=== PATIENT | female | born 1935 | race Two or more races ===

== ENCOUNTER 2017-05-22 15:10 | Outpatient (CLI) | payer OTHER ==
[~2017-05-22 15:10] MED LIST: CRESTOR5 MG PO; MAVIK4 MG PO; PAXIL20 MG PO; SYNTHROID50 MCG PO; VERAPAMIL ER180 MG PO
== END 2017-05-22 15:14 | disposition home or self-care (01) ==
LOC: SONOGRAMA 15:10
DX: M54.2 Cervicalgia (principal)

== ENCOUNTER 2020-11-23 17:57 | Emergency (ER) | payer OTHER ==
[~2020-11-23] VITALS: Ht 160 cm; Wt 49.9 kg
[2020-11-23] MEDS ORDERED: CLONAZEPAM0.5 MG PO (18:19)
[2020-11-23] MEDS ORDERED: NEURONTIN300 MG (18:19)
== END 2020-11-24 00:01 | disposition left against medical advice (07) ==
LOC: ER 17:57
DX: R00.2 Palpitations (principal); F41.8 Other specified anxiety disorders

== ENCOUNTER 2021-08-05 09:15 | Emergency (ER) | payer OTHER ==
[~2021-08-05] VITALS: Ht 154.9 cm; Wt 56.7 kg
[~2021-08-05 09:15] MED LIST changes: +CLONAZEPAM0.5 MG PO; +NEURONTIN300 MG
[2021-08-05] MEDS ORDERED: CINACALCET HCL30 MG PO (09:37)
[2021-08-05] MEDS ORDERED: LEVOTHYROXINE25 MC1 PO (09:37)
[2021-08-05] MEDS ORDERED: VITAMIN D325 MC2 PO (09:37)
[2021-08-05] MEDS ORDERED: CLONAZEPAM1 MG PO (09:38)
[2021-08-05] MEDS ORDERED: MIRTAZAPINE15 MG PO (09:38)
== END 2021-08-05 13:16 | disposition home or self-care (01) ==
LOC: ER 09:15
DX: R10.32 Left lower quadrant pain (principal); M77.9 Enthesopathy, unspecified; I10 Essential (primary) hypertension

== ENCOUNTER 2021-08-13 09:45 | Emergency (ER) | payer OTHER ==
[~2021-08-13] VITALS: Ht 154.9 cm; Wt 56.7 kg
[~2021-08-13 09:45] MED LIST changes: +CINACALCET HCL30 MG PO; +CLONAZEPAM1 MG PO; +LEVOTHYROXINE25 MC1 PO; +MIRTAZAPINE15 MG PO; +VITAMIN D325 MC2 PO
[2021-08-13] MEDS ORDERED: BIOTIN1000 MCG PO (10:05)
== END 2021-08-13 13:49 | disposition home or self-care (01) ==
LOC: ER 09:45
DX: M76.892 Other specified enthesopathies of left lower limb, excluding foot (principal)

== ENCOUNTER → 2021-09-21 | Outpatient (CLI) | payer OTHER ==
[~2021-09-21] MED LIST changes: +BIOTIN1000 MCG PO
== END | disposition home or self-care (01) ==
LOC: NUCLEAR 10:00
PROVIDERS: ATTEND Orthopaedic Surgery
DX: M81.0 Age-related osteoporosis without current pathological fracture (principal)

== ENCOUNTER → 2022-12-21 | Outpatient (CLI) | payer OTHER | END | disposition home or self-care (01) | LOC: NUCLEAR 13:18 | PROVIDERS: ATTEND Orthopaedic Surgery | DX: M81.0 Age-related osteoporosis without current pathological fracture (principal) ==